=== PATIENT | male | born 1960 | race Caucasian/White ===

== ENCOUNTER 2024-10-12 16:01 | Inpatient (IN) | payer BC ==
[~2024-10-12] VITALS: Ht 177.8 cm; Wt 113.4 kg
[2024-10-12] MEDS: IV NS 0.9% 1,000 ML BAG IV ONE (17:00)
[2024-10-12 17:18] LABS: BASOPHILS # (AUTO) 0.1 K/uL (0.0-0.2); BASOPHILS % (AUTO) 1.3 % (0.0-2.0); EOSINOPHILS # (AUTO) 0.1 K/uL (0.0-0.7); EOSINOPHILS % (AUTO) 2.3 % (0.0-6.0); HEMATOCRIT 43 % (39-51); HEMOGLOBIN 14.2 g/dL (13.5-17.5); LYMPHOCYTES # (AUTO) 1.5 K/uL (0.8-4.8); LYMPHOCYTES % (AUTO) 29.9 % (20.0-44.0); MEAN CORPUSCULAR HEMOGLOBIN 34 PG (26.0-33.0); MEAN CORPUSCULAR HGB CONC 33 g/dl (31.0-36.0); MEAN CORPUSCULAR VOLUME 102 fL (80-96); MONOCYTES # (AUTO) 0.9 K/uL (0.1-1.30); MONOCYTES % (AUTO) 18.7 % (2.0-12.0); NEUTROPHILS # (AUTO) 2.4 K/uL (1.8-8.9); NEUTROPHILS % (AUTO) 47.8 % (43.0-81.0); PLATELET COUNT (AUTO) 209 K/uL (150-450); RED BLOOD CELL COUNT(AUTO) 4.23 MIL/uL (4.5-6.0); RED CELL DISTRIBUTION WIDTH 15.7 % (11.5-15.0); WHITE BLOOD COUNT (AUTO) 5.1 K/uL (4.3-11.0)
[2024-10-12] MEDS: methylPREDNISolone SOD SUCC 125 MG/2ML VIAL IV ONE (17:20)
[2024-10-12] MEDS ORDERED: FOLIC ACID 1 MG TABLET ONE (17:21)
[2024-10-12] MEDS ORDERED: THIAMINE HCL 100 MG TABLET ONE (17:21)
[2024-10-12] MEDS ORDERED: methylPREDNISolone SOD SUCC 125 MG/2ML VIAL ONE (17:22)
[2024-10-12 17:27] LABS: CARBON DIOXIDE 36 mmol/L (21-32); CHLORIDE 105 mmol/L (98-107); GLUCOSE 132 mg/dL (74-106); POTASSIUM 4.1 mmol/L (3.5-5.1); SODIUM SERUM 141 mmol/L (136-145); UREA NITROGEN, BLOOD 10 mg/dL (7-18)
[2024-10-12] MEDS ORDERED: IPRATROPIUM NEB FS 0.5 MG/2.5 ML AMPUL.NEB ONE (17:28)
[2024-10-12] MEDS ORDERED: ALBUTEROL FS 2.5 MG/3 ML VIAL.NEB ONE (17:28)
[2024-10-12] MEDS: ALBUTEROL FS 2.5 MG/3 ML VIAL.NEB NEB ONE (17:35)
[2024-10-12] MEDS: IPRATROPIUM NEB FS 0.5 MG/2.5 ML AMPUL.NEB NEB ONE (17:35)
[2024-10-12 17:36] VITALS: O2SAT 96
[2024-10-12 17:40] LABS: NT-PRO BNP 1589 pg/mL (0-125)
[2024-10-12] MEDS: FOLIC ACID 1 MG TABLET PO STA (17:55)
[2024-10-12] MEDS: PYRIDOXINE HCL 50 MG TABLET PO STA (17:55)
[2024-10-12] MEDS: THIAMINE HCL 100 MG TABLET PO STA (17:55)
[2024-10-12] MEDS ORDERED: ENOXAPARIN SODIUM 40 MG/0.4 ML DISP.SYRIN SQ ONE ×2 (18:00→19:30)
[2024-10-12 18:43] VITALS: O2SAT 99
[2024-10-12 19:13] LABS: EOSINOPHILS % (MANUAL) 1 % (0-4); LYMPHOCYTES % (MANUAL) 22 % (16-48); MONOCYTES % (MANUAL) 15 % (0-11.0); NEUTROPHILS % (MANUAL) 62 (42-76); PLATELET ESTIMATE ADEQUATE
[2024-10-12 19:14] LABS: STOMATOCYTES 2+
[2024-10-12] MEDS ORDERED: FUROSEMIDE 40 MG/4 ML VIAL ONE (19:30)
[2024-10-12] MEDS: ENOXAPARIN SODIUM 40 MG/0.4 ML DISP.SYRIN SQ ONE (19:35)
[2024-10-12] MEDS: FUROSEMIDE 40 MG/4 ML VIAL IV ONE (19:36)
[2024-10-12] MEDS ORDERED: ACETAMINOPHEN 325 MG TABLET PO PRN (20:00)
[2024-10-12] MEDS ORDERED: ONDANSETRON HCL/PF 4 MG/2 ML VIAL IVP PRN (20:00)
[2024-10-12] MEDS ORDERED: MAG HYDROX/AL HYDROX/SIMETH 30 ML UDC PO PRN (20:00)
[2024-10-12] MEDS ORDERED: MAGNESIUM HYDROXIDE 30 ML UDC PO PRN (20:00)
[2024-10-13] VITALS (8 sets, daily range): BP systolic 91–146; BP diastolic 57–88; TEMP 97.5–98.3; O2SAT 90–100
[2024-10-13] MEDS ORDERED: TRAZODONE 50 MG TABLET PO SCH
[2024-10-13] MEDS: PANTOPRAZOLE 40 MG TABLET.DR PO SCH (07:30)
[2024-10-13] MEDS: FUROSEMIDE 40 MG/4 ML VIAL IV SCH ×2 (09:09→17:18)
[2024-10-13] MEDS: FOLIC ACID 1 MG TABLET PO SCH (09:10)
[2024-10-13] MEDS: THIAMINE HCL 100 MG TABLET PO SCH (09:10)
[2024-10-13] MEDS: methylPREDNISolone SOD SUCC 40 MG/ML VIAL IV SCH (09:16)
[2024-10-13] MEDS ORDERED: FOLI0.4T6 PO (09:32)
[2024-10-13] MEDS ORDERED: METO50TA16 PO (09:32)
[2024-10-13] MEDS ORDERED: MULT-594 PO (09:32)
[2024-10-13] MEDS ORDERED: GABA600T12 PO (09:32)
[2024-10-13] MEDS ORDERED: ACET-2030 PO (09:32)
[2024-10-13] MEDS ORDERED: APIX5TAB PO (09:32)
[2024-10-13] MEDS ORDERED: METH750T3 PO (09:32)
[2024-10-13 11:42] LABS: BASOPHILS % (AUTO) 0.1 % (0.0-2.0); HEMATOCRIT 48 % (39-51); HEMOGLOBIN 15.9 g/dL (13.5-17.5); LYMPHOCYTES # (AUTO) 0.9 K/uL (0.8-4.8); LYMPHOCYTES % (AUTO) 11.6 % (20.0-44.0); MEAN CORPUSCULAR HEMOGLOBIN 33 PG (26.0-33.0); MEAN CORPUSCULAR HGB CONC 33 g/dl (31.0-36.0); MEAN CORPUSCULAR VOLUME 101 fL (80-96); MONOCYTES # (AUTO) 0.5 K/uL (0.1-1.30); MONOCYTES % (AUTO) 6.4 % (2.0-12.0); NEUTROPHILS # (AUTO) 6.4 K/uL (1.8-8.9); NEUTROPHILS % (AUTO) 81.9 % (43.0-81.0); PLATELET COUNT (AUTO) 236 K/uL (150-450); RED BLOOD CELL COUNT(AUTO) 4.76 MIL/uL (4.5-6.0); RED CELL DISTRIBUTION WIDTH 15.9 % (11.5-15.0); WHITE BLOOD COUNT (AUTO) 7.8 K/uL (4.3-11.0)
[2024-10-13 11:58] LABS: CALCIUM, SERUM 10.1 mg/dL (8.5-10.1); MAGNESIUM 1.8 mg/dL (1.8-2.4); PHOSPHORUS 1.9 mg/dL (2.5-4.9); POTASSIUM 3.7 mmol/L (3.5-5.1)
[2024-10-13 12:06] LABS: THYROID STIMULATING HORMONE 0.35 uIU/mL (0.358-3.74)
[2024-10-13] MEDS ORDERED: HEPARIN INFUSION/D5W 500 ML IV PRN (13:00)
[2024-10-13] MEDS: ASPIRIN 81 MG TAB.CHEW PO SCH (13:32)
[2024-10-13] MEDS: METHOCARBAMOL (750MG) 750 MG TABLET PO SCH (13:33)
[2024-10-13] MEDS: AMIODARONE 150 MG in IV D5W 100 ML IV ONE (14:20)
[2024-10-13] MEDS: AMIODARONE 450 MG in IV D5W 241 ML IV PRN (14:31)
[2024-10-13] MEDS: K PHOS NEUTRAL 250 MG TABLET PO ONE (16:44)
[2024-10-13] MEDS: METOPROLOL TARTRATE 50 MG TABLET PO SCH (17:17)
[2024-10-13] MEDS: APIXABAN 5 MG TABLET PO SCH (17:18)
[2024-10-13] MEDS ORDERED: ENOXAPARIN SODIUM 40 MG/0.4 ML DISP.SYRIN SQ SCH (18:00)
[2024-10-13] MEDS: ATORVASTATIN 40 MG TABLET PO SCH (22:41)
[2024-10-13] MEDS: TRAZODONE 50 MG TABLET PO PRN (22:42)
[2024-10-13] MEDS: ALBUTEROL FS 2.5 MG/3 ML VIAL.NEB NEB PRN (23:47)
[2024-10-13] MEDS: IPRATROPIUM NEB FS 0.5 MG/2.5 ML AMPUL.NEB NEB PRN (23:47)
[2024-10-14] VITALS (8 sets, daily range): BP systolic 112–140; BP diastolic 68–92; TEMP 97.3–98.5; O2SAT 91–100
[2024-10-14 06:59] LABS: HEMATOCRIT 46 % (39-51); HEMOGLOBIN 15.5 g/dL (13.5-17.5); LYMPHOCYTES # (AUTO) 1.1 K/uL (0.8-4.8); LYMPHOCYTES % (AUTO) 8.5 % (20.0-44.0); MEAN CORPUSCULAR HEMOGLOBIN 34 PG (26.0-33.0); MEAN CORPUSCULAR HGB CONC 34 g/dl (31.0-36.0); MEAN CORPUSCULAR VOLUME 100 fL (80-96); MONOCYTES # (AUTO) 0.7 K/uL (0.1-1.30); MONOCYTES % (AUTO) 5.4 % (2.0-12.0); NEUTROPHILS # (AUTO) 11.4 K/uL (1.8-8.9); NEUTROPHILS % (AUTO) 86.1 % (43.0-81.0); PLATELET COUNT (AUTO) 263 K/uL (150-450); RED BLOOD CELL COUNT(AUTO) 4.57 MIL/uL (4.5-6.0); RED CELL DISTRIBUTION WIDTH 16.1 % (11.5-15.0); WHITE BLOOD COUNT (AUTO) 13.3 K/uL (4.3-11.0)
[2024-10-14 07:15] LABS: CALCIUM, SERUM 9.5 mg/dL (8.5-10.1); CREATININE 1.1 mg/dL (0.6-1.3); MAGNESIUM 1.9 mg/dL (1.8-2.4); PHOSPHORUS 4.6 mg/dL (2.5-4.9); POTASSIUM 3.6 mmol/L (3.5-5.1)
[2024-10-14 07:44] LABS: THYROID STIMULATING HORMONE 0.25 uIU/mL (0.358-3.74)
[2024-10-14] MEDS: MULTIVITAMINS,THERAGRAN 1 UDTAB TABLET PO SCH (08:29)
[2024-10-14] MEDS ORDERED: ANESTHESIA TRAY IN PYXIS 1 EA TRAY MC ONE ×2 (08:52→13:39)
[2024-10-14] MEDS: FOLIC ACID 1 MG TABLET PO SCH (09:00)
[2024-10-14] MEDS: POTASSIUM CHLORIDE 10 MEQ TABLET.SA PO ONE (11:00)
[2024-10-14] MEDS: Magnesium 1GM/D5W 100ML PREMIX 100 ML IV SCH (11:00)
[2024-10-14] MEDS ORDERED: ALBUTEROL SULFATE 8 GM HFA.AER.AD ONE (11:50)
[2024-10-14] MEDS ORDERED: ALBUTEROL FS 2.5 MG/3 ML VIAL.NEB ONE (12:15)
[2024-10-14] MEDS ORDERED: CEFTRIAXONE 1GM BAG (ER ONLY) 1 GM/50 ML PIGGYBACK IV SCH (12:30)
[2024-10-14] MEDS: CEFTRIAXONE 1 G in IV D5W 50 ML IV SCH (13:09)
[2024-10-14] MEDS: AMIODARONE HCL 200 MG TABLET PO SCH (13:39)
[2024-10-14] MEDS: methylPREDNISolone SOD SUCC 40 MG/ML VIAL IV SCH (16:36)
[2024-10-14] MEDS: IPRATROPIUM NEB FS 0.5 MG/2.5 ML AMPUL.NEB NEB SCH (19:26)
[2024-10-14] MEDS: ALBUTEROL FS 2.5 MG/3 ML VIAL.NEB NEB PRN (19:27)
[2024-10-15] VITALS (13 sets, daily range): BP systolic 128–147; BP diastolic 8–96; TEMP 97.5–98.6; O2SAT 92–98
[2024-10-15 07:36] LABS: HEMATOCRIT 44 % (39-51); HEMOGLOBIN 14.7 g/dL (13.5-17.5); LYMPHOCYTES % (AUTO) 7.7 % (20.0-44.0); MEAN CORPUSCULAR HEMOGLOBIN 34 PG (26.0-33.0); MEAN CORPUSCULAR HGB CONC 34 g/dl (31.0-36.0); MEAN CORPUSCULAR VOLUME 100 fL (80-96); MONOCYTES % (AUTO) 7.8 % (2.0-12.0); NEUTROPHILS # (AUTO) 10.8 K/uL (1.8-8.9); NEUTROPHILS % (AUTO) 84.5 % (43.0-81.0); PLATELET COUNT (AUTO) 247 K/uL (150-450); RED BLOOD CELL COUNT(AUTO) 4.37 MIL/uL (4.5-6.0); RED CELL DISTRIBUTION WIDTH 15.9 % (11.5-15.0); WHITE BLOOD COUNT (AUTO) 12.8 K/uL (4.3-11.0)
[2024-10-15 07:50] LABS: CALCIUM, SERUM 9.1 mg/dL (8.5-10.1); CREATININE 1.1 mg/dL (0.6-1.3); MAGNESIUM 2.1 mg/dL (1.8-2.4); PHOSPHORUS 5.1 mg/dL (2.5-4.9); POTASSIUM 3.8 mmol/L (3.5-5.1)
[2024-10-15] MEDS: POTASSIUM CHLORIDE 20 MEQ TAB.PRT.SR PO SCH (09:01)
[2024-10-15 10:20] LABS: ABG BASE EXCESS 9.4 mmol/L (-2.0-3.0); ABG OXYGEN SATURATION 92.8 % (94.0-98.0); ABG PCO2 48.5 mmHg (35.0-48.0); ABG PH 7.472 (7.350-7.450); ABG PO2 65.5 mmHg (83.0-108.0); ABG TOTAL HEMOGLOBIN 15.7 G/dL (13.5-17.5); COHb 0.4 % (0.5-1.5); MetHb 0.2 % (0.0-1.5); O2Hb 92.2 % (94.0-97.0); SITE, ABG RIGHT RADIAL
[2024-10-15] MEDS: acetaZOLAMIDE SODIUM 500 MG/VIAL VIAL IV SCH (12:18)
[2024-10-15] MEDS: methylPREDNISolone SOD SUCC 40 MG/ML VIAL IV SCH (12:18)
[2024-10-15] MEDS ORDERED: FUROSEMIDE 40 MG/4 ML VIAL IV SCH (17:00)
[2024-10-15] MEDS: TRAZODONE 50 MG TABLET PO SCH (22:46)
[2024-10-16] VITALS: BP 130/68; TEMP 98.6; O2SAT 92
[2024-10-16 04:00] VITALS: BP 116/66; TEMP 98.1; O2SAT 96
[2024-10-16] MEDS ORDERED: FUROSEMIDE 40 MG/4 ML VIAL IV SCH (06:00)
[2024-10-16 07:46] LABS: BASOPHILS % (AUTO) 0.1 % (0.0-2.0); HEMATOCRIT 45 % (39-51); LYMPHOCYTES # (AUTO) 1.1 K/uL (0.8-4.8); LYMPHOCYTES % (AUTO) 8.9 % (20.0-44.0); MEAN CORPUSCULAR HEMOGLOBIN 34 PG (26.0-33.0); MEAN CORPUSCULAR HGB CONC 33 g/dl (31.0-36.0); MEAN CORPUSCULAR VOLUME 101 fL (80-96); MONOCYTES % (AUTO) 7.9 % (2.0-12.0); NEUTROPHILS # (AUTO) 10.6 K/uL (1.8-8.9); NEUTROPHILS % (AUTO) 83.1 % (43.0-81.0); PLATELET COUNT (AUTO) 259 K/uL (150-450); RED BLOOD CELL COUNT(AUTO) 4.48 MIL/uL (4.5-6.0); RED CELL DISTRIBUTION WIDTH 15.9 % (11.5-15.0); WHITE BLOOD COUNT (AUTO) 12.7 K/uL (4.3-11.0)
[2024-10-16 08:00] VITALS: BP 138/89; TEMP 98.1; O2SAT 89
[2024-10-16 08:53] LABS: PHOSPHORUS 5.1 mg/dL (2.5-4.9)
[2024-10-16 08:56] LABS: POTASSIUM 3.9 mmol/L (3.5-5.1)
[2024-10-16 08:57] LABS: CREATININE 1.2 mg/dL (0.6-1.3)
[2024-10-16] MEDS: AMIODARONE HCL 200 MG TABLET PO SCH (09:07)
[2024-10-16 09:12] LABS: MAGNESIUM 2.4 mg/dL (1.8-2.4)
[2024-10-16 12:00] VITALS: BP 133/93; TEMP 98.1; O2SAT 89
[2024-10-16 16:00] VITALS: BP 132/83; TEMP 98.3; O2SAT 94
[2024-10-16 20:00] VITALS: BP 100/86; TEMP 97.9; O2SAT 94
[2024-10-17] VITALS: BP 147/93; TEMP 98; O2SAT 95
[2024-10-17 04:00] VITALS: BP 147/84; TEMP 97.2; O2SAT 97
[2024-10-17 07:34] VITALS: O2SAT 95
[2024-10-17 08:00] VITALS: BP 154/101; TEMP 98.2; O2SAT 94
[2024-10-17] MEDS: predniSONE 20 MG TABLET PO SCH (08:54)
[2024-10-17] MEDS ORDERED: ASPI-1169 PO (10:32)
[2024-10-17] MEDS ORDERED: AMIO200T7 PO (10:32)
[2024-10-17] MEDS ORDERED: ATOR40TA PO (10:32)
[2024-10-17] MEDS ORDERED: TRAZ-252 PO (10:32)
[2024-10-17] MEDS ORDERED: FURO-145 PO (10:32)
[2024-10-17] MEDS: FUROSEMIDE 20 MG TABLET PO SCH (11:42)
[2024-10-17 12:00] VITALS: BP 137/92; TEMP 97.7; O2SAT 95
[2024-10-17] MEDS ORDERED: METOPROLOL TARTRATE 50 MG TABLET PO SCH (17:00)
== END 2024-10-17 14:27 | disposition home or self-care (01) | DRG 280 ==
LOC: ER 16:06 → TELE 21:17 → TELE1 10-13 14:14 → TELE-TD 10-13 14:44 → TELE1 10-15 16:54
PROVIDERS: ATTEND Nurse Practitioner Acute Care
PROC: 5A2204Z Restoration of Cardiac Rhythm, Single (ICD-10-PCS; principal; 2024-10-14 11:30)
PROC: B246ZZ4 Ultrasonography of Right and Left Heart, Transesophageal (ICD-10-PCS; 2024-10-14 11:30)
DX: I48.92 Unspecified atrial flutter (principal); I50.31 Acute diastolic (congestive) heart failure; I21.A1 Myocardial infarction type 2; J96.01 Acute respiratory failure with hypoxia; J98.11 Atelectasis; E87.4 Mixed disorder of acid-base balance; F10.139 Alcohol abuse with withdrawal, unspecified; J45.909 Unspecified asthma, uncomplicated; E66.9 Obesity, unspecified; I48.91 Unspecified atrial fibrillation; Z79.01 Long term (current) use of anticoagulants; Z79.899 Other long term (current) drug therapy; Z87.891 Personal history of nicotine dependence; I34.0 Nonrheumatic mitral (valve) insufficiency; D72.829 Elevated white blood cell count, unspecified; T38.0X5A Adverse effect of glucocorticoids and synthetic analogues, initial encounter; T50.2X5A Adverse effect of carbonic-anhydrase inhibitors, benzothiadiazides and other diuretics, initial encounter; Y92.89 Other specified places as the place of occurrence of the external cause; R53.1 Weakness; R93.1 Abnormal findings on diagnostic imaging of heart and coronary circulation; G62.9 Polyneuropathy, unspecified; F12.11 Cannabis abuse, in remission
CPT/HCPCS: 36415; 36600; 71045-TC; 71250-TC; 80048-TC; 80061-TC; 82803-TC; 83735-TC; 83880; 84100-TC; 84439-TC; 84443-TC; 84480; 84484-TC; 85025-TC; 85378-TC; 87040-TC; 87081-TC; 93307-TC; 93312-TC; 94761-TC; 94799-TC; 97112-TC; 97116-TC; 97530-TC; A4223; G0378; J0282; J0696; J1120; J1650; J1938; J2704; J2919; J3490; J7030; J7060